=== PATIENT | male | born 1980 | race Hispanic/Latino ===

== ENCOUNTER → 2019-05-24 | Outpatient (CLI) | payer BC ==
--- NOTE | 2019-05-24 13:17 | Diagnostic Imaging Report ---
Testicular ultrasound, 05/24/2019. History: Spermatocele. Comparison: None available. Discussion: Evaluation of the scrotum was performed in the transverse and longitudinal planes. Color Doppler and spectral wave form analysis was performed bilaterally. The testes are normal in size and echogenicity bilaterally, measuring 4.0 x 1.7 x 2.7 cm on the right and 4.6 x 2.5 x 3.4 cm on the left. A few scattered subcentimeter calcifications are present bilaterally, less than 5. There is no evidence of a mass. There is no evidence of hydrocele. Normal and symmetrical flow is present within both testes. Right epididymis measures 1.3 x 0.6 x 1.1 cm and contains a 0.8 cm hypoechoic lesion and a 0.4 cm hypoechoic lesion. Left epididymis measures 1.1 x 0.9 x 0.9 cm and contains a 0.3 cm anechoic lesion. IMPRESSION: 1. Small testicular calcifications are noted bilaterally without evidence of testicular mass. 2. Small bilateral spermatoceles versus epididymal cysts. Signed by: Adolph Simpson on 05/24/2019 1:14 PM
== END ==
LOC: US 11:33 → EDBD 11:33
PROVIDERS: ATTEND Urology
DX: N43.40 Spermatocele of epididymis, unspecified (principal)
CPT/HCPCS: 76870; 93976